=== PATIENT | male | born 1980 | race Caucasian/White ===

== ENCOUNTER 2017-05-28 10:10 | Emergency (ER) | payer OTHER ==
[2017-05-28 10:13] VITALS: BP 152/97; PULSE 95; TEMP 98.2; BMI 31.0
[2017-05-28] MEDS ORDERED: IBUPROFEN 600 MG TABLET (FP) PO ONE ×2 (11:07→11:08)
--- NOTE | 2017-05-28 11:10 | PDOC ---
History of Present Illness - General Chief Complaint: Edema Stated Complaint: SWOLLEN LT ANKLE Time Seen by Provider: 05/28/17 10:45 History Source: Patient Exam Limitations: No Limitations - History of Present Illness Initial Comments: 05/28/17 11:10 Patient comes in for evaluation of left ankle pain 3 weeks. 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 Did not provide any treatment for the sore ankle, has not taken any medications for relief of pain were wrapped ankle. No history of trauma to that leg. is concerned that patient may have some systemic problem as he is a daily drinker and while googling information wondered about edema of feet 05/28/17 13:48 Occurred: reports: other (3 weeks ago onset of pain tp ) Severity: reports: mild, moderate Pain Location: reports: lower extremity (left ankle ) Method of Injury: Yes: unknown Modifying Factors: improves with: None Past History - Travel Traveled outside of the country in the last 30 days: No Close contact w/someone who was outside of country & ill: No - Past Medical History Allergies/Adverse Reactions: Allergies Allergy/AdvReac Type Severity Reaction Status Date / Time No Known Allergies Allergy Verified 05/28/17 10:14 Home Medications: Ambulatory Orders NK [No Known Home Medication] 05/28/17 Other medical history: NONE - Immunization History Immunization Up to Date: Yes - Suicide/Smoking/Psychosocial Hx Smoking History: Current every day smoker Have you smoked in the past 12 months: Yes Number of Cigarettes Smoked Daily: 20 Information on smoking cessation initiated: Yes 'Breaking Loose' booklet given: 05/28/17 Hx Alcohol Use: Yes (SOCIAL) Drug/Substance Use Hx: No Substance Use Type: None Review of Systems - Review of Systems Able to Perform ROS?: Yes Is the patient limited [place] proficient: Yes Constitutional: Yes: See HPI. No: Symptoms Reported, Fever, Malaise HEENTM: No: Symptoms Reported Musculoskeletal: Yes: Symptoms Reported, See HPI, Joint Pain, Joint Swelling, Joint Stiffness Integumentary: Yes: Symptoms Reported Neurological: Yes: Symptoms reported All Other Systems: Reviewed and Negative *Physical Exam - Vital Signs Last Vital Signs Temp Pulse Resp BP Pulse Ox 98.2 F 95 H 20 152/97 98 05/28/17 10:11 05/28/17 10:11 05/28/17 10:11 05/28/17 10:11 05/28/17 10:11 - Physical Exam General Appearance: Yes: Nourished, Appropriately Dressed. No: Apparent Distress HEENT: positive: DILIP, Normal ENT Inspection, TMs Normal, Pharynx Normal Respiratory/Chest: positive: Lungs Clear Musculoskeletal: positive: Normal Inspection. negative: Vertebral Tenderness Extremity: positive: Normal Capillary Refill, Normal Range of Motion (patient with no point tenderness to medial or lateral malleolus, no fifth metatarsal or navicular pain, negative squeeze test. Neurovascular intact to foot. Patient has no evidence of swelling, erythema or cellulitis foot or ankle). negative: Tender Integumentary: positive: Normal Color, Dry, Warm Neurologic: positive: production intern II-XII NML intact, Fully Oriented, Alert, Normal Mood/ Affect, Normal Response, Motor Strength 5/5 Progress Note - Progress Note Progress Note: Ankle sprain by history, no obvious residual tenderness. Will encourage rest, NSAIDs, and follow up with Orth O if symptoms persist. *DC/Admit/Observation/Transfer Diagnosis at time of Disposition: Left ankle sprain Qualifiers: Encounter type: initial encounter Involved ligament of ankle: unspecified ligament Qualified Code(s): S93.402A - Sprain of unspecified ligament of left ankle, initial encounter - Discharge Dispostion Disposition: HOME Condition at time of disposition: Stable Admit: No - Referrals Referrals: Renato Alfred MD [Staff Physician] - - Patient Instructions Printed Discharge Instructions: DI for Ankle Sprain Additional Instructions: Rest, ice to area on and off for 15 minutes 4-6 times a day Avoid heavy lifting or exercise until pain and swelling is resolved or until further directed Keep area highly elevated to reduce swelling Use splints/Dex wrap as directed Followup with orthopedist in one to 2 days if not improving, if significantly improved may wait one week for followup with orthopedist May use ibuprofen 2-200 mg tablets every 6 hours as needed for pain
== END 2017-05-28 11:13 | disposition home or self-care (01) ==
LOC: JERFT 10:10
DX: S93.402A Sprain of unspecified ligament of left ankle, initial encounter (principal); X50.3XXA Overexertion from repetitive movements, initial encounter; Y93.89 Activity, other specified; Y92.59 Other trade areas as the place of occurrence of the external cause; Y99.0 Civilian activity done for income or pay; F17.210 Nicotine dependence, cigarettes, uncomplicated
CPT/HCPCS: 99281-25